=== PATIENT | female | born 1930 | race Caucasian/White ===

== ENCOUNTER 2017-03-30 12:24 | Emergency (ER) | payer MEDICARE, BC ==
[~2017-03-30] VITALS: Ht 160 cm; Wt 68.0 kg
[~2017-03-30 12:24] MED LIST: CELE20TA PO; METO25TA3 PO; PLAV75TA29 PO; PRAV40TA2 PO
[2017-03-30 12:30] VITALS: BP 175/86; PULSE 86; RESP 15; TEMP 98.1; O2SAT 99
--- NOTE | 2017-03-30 12:37 | PD ---
Physical Exam Date Seen by Provider: Mar 30, 2017 Time Seen by Provider: 12:33 Narrative 86-year-old female presents to the emergency department with reports sudden onset of headache left sided pain in the left shoulder, leg, and foot. Patient states it started at 7:00 this morning. Patient states her headache is now a 3 out of 10. She states she took some Aleve which made. Patient denies dizziness or fever. Patient has a history of a stroke one year ago. Patient is ambulatory with a walker. She is alert and oriented. Patient denies numbness. Vital signs are stable. Patient is awaiting mental health placement. Data Data Last Documented VS Vital Signs Date Time Temp Pulse Resp B/P (MAP) Pulse Ox O2 Delivery O2 Flow Rate FiO2 03/30/17 12:30 98.1 86 15 175/86 (115) 99 MDM Medical Record Reviewed: Yes Supervised Visit with JOHNNY: Yes Condition: Stable Pro [place] Mar 30, 2017 12:37
[2017-03-30] MEDS ORDERED: VITA10002 PO (12:54)
[2017-03-30] MEDS ORDERED: TRAZ100T6 PO (12:54)
[2017-03-30] MEDS ORDERED: TRIA1CAP6 PO (12:54)
[2017-03-30] MEDS ORDERED: ALLO100T PO (12:54)
--- NOTE | 2017-03-30 13:59 | PD ---
HPI Chief Complaint: Headache Time Seen by Provider: 13:23 Travel History International Travel<30 days: No Contact w/Intl Traveler<30days: No Traveled to known affect area: No History of Present Illness HPI 86-year-old female presents with headache to the back of her head that she associated with pain to her left shoulder and left hip. She states she took Aleve prior to arrival and now has no pain at all. She states that she has no numbness, weakness, mentation changes or other concurrent complaints at this time. She states no specific modifying factors. Her caregiver states she has history of stroke so she called her primary who said that she should get checked out. Her caregiver also denies her having any numbness, weakness or any other complaints other than pain to her head and pain to her left side of her body. Quality was sharp. Severity is currently resolved. PFSH Past Medical History Hx Anticoagulant Therapy: No Anemia: Yes Arthritis: Yes Anxiety: Yes Depression: Yes ( 2 years ago) Heart Rhythm Problems: No Cancer: No Cardiovascular Problems: Yes High Cholesterol: No Chest Pain: No Congestive Heart Failure: No Cerebrovascular Accident: Yes (right side deficit as well as memory) Endocrine: No GERD: No Gout: Yes Genitourinary: Yes Headaches: Yes Hiatal Hernia: Yes (hernia repair) Hypertension: Yes Immune Disorder: No Kidney Stones: Yes Musculoskeletal: Yes (CHRONIC PAIN) Neurologic: Yes Psychiatric: No Reproductive: No Respiratory: No Migraines: No Pneumonia: Yes Renal Failure: No Seizures: No Ulcer: No Menopausal: Yes : 3 Para: 3 Past Surgical History Abdominal Surgery: Yes (APPENDECTOMY, HERNIA REPAIR) Appendectomy: Yes Cardiac Surgery: No Ear Surgery: No Endocrine Surgery: No Eye Surgery: No Genitourinary Surgery: Yes (LEFT KIDNEY STONE REMOVAL) Gynecologic Surgery: Yes (HYSTERECTOMY) Hysterectomy: Yes Oral Surgery: Yes (DENTAL IMPLANTS) Thoracic Surgery: No Other Surgery: Yes Social History Alcohol Use: No Tobacco Use: No Substance Use: No Allergies-Medications (Allergen,Severity, Reaction): Coded Allergies: ibuprofen (Unverified Adverse Reaction, Intermediate, Diarrhea, 03/30/17) naproxen (Unverified Adverse Reaction, Intermediate, Diarrhea, 03/30/17) "I THINK IT GAVE ME DIARRHEA" Reported Meds & Prescriptions Reported Meds & Active Scripts Active Reported Allopurinol 100 Mg Tab 100 Mg PO DAILY Vitamin B-12 (Cyanocobalamin) 1,000 Mcg Tab 1,000 Mcg PO DAILY Trazodone (Trazodone HCl) 100 Mg Tablet 100 Mg PO HS Dyrenium (Triamterene) 50 Mg Cap 25 Mg PO DAILY Pravastatin 40 Mg Tab 40 Mg PO HS Plavix (Clopidogrel Bisulfate) 75 Mg Tab 75 Mg PO DAILY Celexa (Citalopram Hydrobromide) 20 Mg Tab 20 Mg PO DAILY Review of Systems Except as stated in HPI: all other systems reviewed are Neg Physical Exam Narrative GENERAL: Well-nourished, well-developed patient. Well-appearing SKIN: Warm and dry. HEAD: Normocephalic and atraumatic. EYES: No injection or drainage. ENT: No nasal drainage noted. NECK: Supple, trachea midline. CARDIOVASCULAR: Regular rate and rhythm RESPIRATORY: Breath sounds equal bilaterally. No accessory muscle use. GASTROINTESTINAL: Abdomen soft, non-tender, nondistended. EXTREMITIES: No edema. BACK: Nontender without obvious deformity. NEUROLOGICAL: Awake and alert. Motor and sensory grossly within normal limits. Normal speech. 5 out of 5 in all 4 extremities, no facial droop, no pronator drift Data Data Last Documented VS Vital Signs Date Time Temp Pulse Resp B/P (MAP) Pulse Ox O2 Delivery O2 Flow Rate FiO2 03/30/17 14:34 03/30/17 12:30 98.1 [address] Brain W/O Iv Contrast(Rout) (03/30/17 ) Complete Blood Count With Diff (03/30/17 13:29) Basic Metabolic Panel (Bmp) (03/30/17 13:29) Act Partial Throm Time (Ptt) (03/30/17 13:29) Prothrombin Time / Inr (Pt) (03/30/17 13:29) Iv Access Insert/Monitor (03/30/17 13:29) Sodium Chlorid 0.9% 500 Ml Inj (Ns 500 M (03/30/17 14:45) Labs Laboratory Tests Test 03/30/17 13:35 White Blood Count 8.3 TH/MM3 Red Blood Count 4.98 MIL/MM3 Hemoglobin 14.3 GM/DL Hematocrit 43.1 % Mean Corpuscular Volume 86.7 FL Mean Corpuscular Hemoglobin 28.8 PG Mean Corpuscular Hemoglobin Concent 33.3 % Red Cell Distribution Width 14.1 % Platelet Count 159 TH/MM3 Mean Platelet Volume 9.4 FL Neutrophils (%) (Auto) 61.7 % Lymphocytes (%) (Auto) 26.9 % Monocytes (%) (Auto) 7.2 % Eosinophils (%) (Auto) 3.4 % Basophils (%) (Auto) 0.8 % Neutrophils # (Auto) 5.1 TH/MM3 Lymphocytes # (Auto) 2.2 TH/MM3 Monocytes # (Auto) 0.6 TH/MM3 Eosinophils # (Auto) 0.3 TH/MM3 Basophils # (Auto) 0.1 TH/MM3 CBC Comment DIFF FINAL Differential Comment Prothrombin Time 11.1 SEC Prothromb Time International Ratio 1.0 RATIO Activated Partial Thromboplast Time 27.3 SEC Blood Urea Nitrogen 29 MG/DL Creatinine 1.53 MG/DL Random Glucose 108 MG/DL Calcium Level 9.2 MG/DL Sodium Level 140 MEQ/L Potassium Level 3.7 MEQ/L Chloride Level 106 MEQ/L Carbon Dioxide Level 25.8 MEQ/L Anion Gap 8 MEQ/L Estimat Glomerular Filtration Rate 32 ML/MIN [facility] Medical Decision Making Medical Screen Exam Complete: Yes Emergency Medical Condition: Yes Medical Record Reviewed: Yes (past history confirmed) Differential Diagnosis Tension, migraine, cluster Narrative Course Will check blood work and CT brain given history and if this is normal patient and caregiver agree to outpatient follow-up patient elected to leave [place] while i was with another patient Diagnosis Primary Impression: Cephalalgia Qualified Codes: R51 - Headache Disposition: 07 AGAINST MEDICAL ADVICE Condition: Stable Iliana Yen MD Mar 30, 2017 13:59
[2017-03-30 14:02] LABS: AUTOMATED NEUTROPHIL # 5.1 TH/MM3 (1.8-7.7); BASOPHIL # 0.1 TH/MM3 (0-0.2); BASOPHIL % 0.8 % (0.0-2.0); EOSINOPHIL # 0.3 TH/MM3 (0-0.4); EOSINOPHIL % 3.4 % (0.0-4.0); HEMATOCRIT 43.1 % (35.0-46.0); HEMO FLAGS DIFF FINAL; LYMPH % 26.9 % (9.0-44.0); LYMPHOCYTE # 2.2 TH/MM3 (1.0-4.8); MEAN CELL VOLUME 86.7 FL (80.0-100.0); MEAN CORPUSCULAR HEMOGLOBIN 28.8 PG (27.0-34.0); MEAN CORPUSCULAR HGB CONC 33.3 % (32.0-36.0); MONO % 7.2 % (0.0-8.0); NEUT % 61.7 % (16.0-70.0); PLATELET COUNT 159 TH/MM3 (150-450); RED BLOOD COUNT 4.98 MIL/MM3 (4.00-5.30); RED CELL DISTRIBUTION WIDTH 14.1 % (11.6-17.2); WHITE BLOOD COUNT 8.3 TH/MM3 (4.0-11.0)
[2017-03-30 14:09] LABS: APTT (PATIENT) 27.3 SEC (24.3-30.1); PROTHROMBIN TIME - PATIENT 11.1 SEC (9.8-11.6)
[2017-03-30 14:29] LABS: BICARBONATE 25.8 MEQ/L (21.0-32.0); POTASSIUM 3.7 MEQ/L (3.5-5.1)
[2017-03-30] MEDS ORDERED: SODIUM CHLORID 0.9% 500 ML INJ 500 ML IV ONE (14:45)
== END 2017-03-30 14:41 | disposition left against medical advice (07) ==
LOC: NEPC 12:24
DX: R51 Headache (principal); I10 Essential (primary) hypertension; M10.9 Gout, unspecified; D64.9 Anemia, unspecified; Z86.73 Personal history of transient ischemic attack (TIA), and cerebral infarction without residual deficits; Z79.02 Long term (current) use of antithrombotics/antiplatelets
CPT/HCPCS: 80048; 85025; 85610; 85730; 99283

== ENCOUNTER 2017-03-31 16:50 | Inpatient (IN) | payer MEDICARE, BC ==
[~2017-03-31] VITALS: Ht 160 cm; Wt 68.1 kg
[~2017-03-31 16:50] MED LIST changes: +ALLO100T PO; -METO25TA3 PO; +TRAZ100T6 PO; +TRIA1CAP6 PO; +VITA10002 PO
[2017-03-31 16:53] VITALS: BP 183/100; PULSE 85; RESP 13; TEMP 98.6; O2SAT 96
[2017-03-31] MEDS ORDERED: SODIUM CHLORIDE 0.9% FLUSH 10 ML FLUSH IVF PRN (17:30)
[2017-03-31 17:36] LABS: AUTOMATED NEUTROPHIL # 5.1 TH/MM3 (1.8-7.7); BASOPHIL # 0.1 TH/MM3 (0-0.2); BASOPHIL % 1.4 % (0.0-2.0); EOSINOPHIL # 0.4 TH/MM3 (0-0.4); EOSINOPHIL % 4.5 % (0.0-4.0); HEMATOCRIT 42.1 % (35.0-46.0); HEMO FLAGS DIFF FINAL; LYMPH % 24.1 % (9.0-44.0); MEAN CELL VOLUME 86.7 FL (80.0-100.0); MEAN CORPUSCULAR HEMOGLOBIN 29.3 PG (27.0-34.0); MEAN CORPUSCULAR HGB CONC 33.7 % (32.0-36.0); MONO % 7.6 % (0.0-8.0); NEUT % 62.4 % (16.0-70.0); PLATELET COUNT 158 TH/MM3 (150-450); RED BLOOD COUNT 4.86 MIL/MM3 (4.00-5.30); RED CELL DISTRIBUTION WIDTH 13.9 % (11.6-17.2); WHITE BLOOD COUNT 8.1 TH/MM3 (4.0-11.0)
--- NOTE | 2017-03-31 17:40 | PD ---
HPI Chief Complaint: Dizziness Time Seen by Provider: 17:30 Travel History International Travel<30 days: No Contact w/Intl Traveler<30days: No Traveled to known affect area: No History of Present Illness HPI 86-year-old female patient with previous history of CVA with some remaining right sided deficits, presents to the ER today for dizziness, left sided arm and leg pain, difficulty walking according to her camera storage clerk. Patient was seen yesterday but had refused to get a CAT scan or further studies. She is brought back in because her camera storage clerk has noticed some gaze abnormalities. Modifying Factors: None Associated Signs & Symptoms: Left arm and leg discomfort, dizziness, difficulty walking, and left gaze deficit Risk Factors: Previous stroke PFSH Past Medical History Hx Anticoagulant Therapy: No Anemia: Yes Arthritis: Yes Anxiety: Yes Depression: Yes ( 2 years ago) Heart Rhythm Problems: No Cancer: No Cardiovascular Problems: Yes High Cholesterol: No Chest Pain: No Congestive Heart Failure: No Cerebrovascular Accident: Yes (2016) Endocrine: No GERD: No Gout: Yes Genitourinary: Yes Headaches: Yes Hiatal Hernia: Yes (hernia repair) Hypertension: Yes Immune Disorder: No Kidney Stones: Yes Musculoskeletal: Yes (CHRONIC PAIN) Neurologic: Yes Psychiatric: No Reproductive: No Respiratory: No Migraines: No Pneumonia: Yes Renal Failure: No Seizures: No Ulcer: No Menopausal: Yes : 3 Para: 3 Past Surgical History Abdominal Surgery: Yes (APPENDECTOMY, HERNIA REPAIR) Appendectomy: Yes Cardiac Surgery: No Ear Surgery: No Endocrine Surgery: No Eye Surgery: No Genitourinary Surgery: Yes (LEFT KIDNEY STONE REMOVAL) Gynecologic Surgery: Yes (HYSTERECTOMY) Hysterectomy: Yes Oral Surgery: Yes (DENTAL IMPLANTS) Thoracic Surgery: No Other Surgery: Yes Social History Alcohol Use: No Tobacco Use: No Substance Use: No Allergies-Medications (Allergen,Severity, Reaction): Coded Allergies: No Known Allergies (Unverified , 03/31/17) Reported Meds & Prescriptions Reported Meds & Active Scripts Active Reported Allopurinol 100 Mg Tab 100 Mg PO DAILY Vitamin B-12 (Cyanocobalamin) 1,000 Mcg Tab 1,000 Mcg PO DAILY Trazodone (Trazodone HCl) 100 Mg Tablet 100 Mg PO HS Dyrenium (Triamterene) 50 Mg Cap 25 Mg PO DAILY Pravastatin 40 Mg Tab 40 Mg PO HS Plavix (Clopidogrel Bisulfate) 75 Mg Tab 75 Mg PO DAILY Celexa (Citalopram Hydrobromide) 20 Mg Tab 20 Mg PO DAILY Review of Systems Except as stated in HPI: all other systems reviewed are Neg Physical Exam Narrative GENERAL: [-] Well-developed elderly white female patient currently in mild distress. Awake and oriented 3. SKIN: Focused skin assessment warm/dry. HEAD: Atraumatic. Normocephalic. EYES: Pupils equal and round. No scleral icterus. No injection or drainage. ENT: No nasal bleeding or discharge. Mucous membranes pink and moist. NECK: Trachea midline. No JVD. CARDIOVASCULAR: Regular rate and rhythm. No murmur appreciated. RESPIRATORY: No accessory muscle use. Clear to auscultation. Breath sounds equal bilaterally. GASTROINTESTINAL: Abdomen soft, non-tender, nondistended. Hepatic and splenic margins not palpable. MUSCULOSKELETAL: No obvious deformities. No clubbing. No cyanosis. No edema. NEUROLOGICAL: Awake and alert. Face is symmetrical. I do see a right lateral gaze palsy. No nystagmus. Motor grossly within normal limits. Normal speech. No pronator drift. Patient is unable to do a Romberg secondary to unsteadiness. PSYCHIATRIC: Appropriate mood and affect; insight and judgment normal. Data Data Last Documented VS Vital Signs Date Time Temp Pulse Resp B/P (MAP) Pulse Ox O2 Delivery O2 Flow Rate FiO2 03/31/17 17:41 97 Room Air 03/31/17 16:53 98.6 85 13 Orders Orders Electrocardiogram (03/31/17 17:18) Complete Blood Count With Diff (03/31/17 17:18) Comprehensive Metabolic Panel (03/31/17 17:18) Magnesium (Mg) (03/31/17 17:18) Ckmb (Isoenzyme) Profile (03/31/17 17:18) Troponin I (03/31/17 17:18) Act Partial Throm Time (Ptt) (03/31/17 17:18) Prothrombin Time / Inr (Pt) (03/31/17 17:18) Urinalysis - C+S If Indicated (03/31/17 17:18) Chest, Single Ap (03/31/17 17:18) Ct Brain W/O Iv Contrast(Rout) (03/31/17 17:18) Ecg Monitoring (03/31/17 17:18) Iv Access Insert/Monitor (03/31/17 17:18) Oximetry (03/31/17 17:18) Sodium Chloride 0.9% Flush (Ns Flush) (03/31/17 17:30) CKMB (03/31/17 17:25) CKMB% (03/31/17 17:25) Aspirin (Aspirin) (03/31/17 18:45) Labs Laboratory Tests Test 03/31/17 17:25 White Blood Count 8.1 TH/MM3 Red Blood Count 4.86 MIL/MM3 Hemoglobin 14.2 GM/DL Hematocrit 42.1 % Mean Corpuscular Volume 86.7 FL Mean Corpuscular Hemoglobin 29.3 PG Mean Corpuscular Hemoglobin Concent 33.7 % Red Cell Distribution Width 13.9 % Platelet Count 158 TH/MM3 Mean Platelet Volume 9.3 FL Neutrophils (%) (Auto) 62.4 % Lymphocytes (%) (Auto) 24.1 % Monocytes (%) (Auto) 7.6 % Eosinophils (%) (Auto) 4.5 % Basophils (%) (Auto) 1.4 % Neutrophils # (Auto) 5.1 TH/MM3 Lymphocytes # (Auto) 2.0 TH/MM3 Monocytes # (Auto) 0.6 TH/MM3 Eosinophils # (Auto) 0.4 TH/MM3 Basophils # (Auto) 0.1 TH/MM3 CBC Comment DIFF FINAL Differential Comment Prothrombin Time 11.1 SEC Prothromb Time International Ratio 1.0 RATIO Activated Partial Thromboplast Time 26.0 SEC Blood Urea Nitrogen 29 MG/DL Creatinine 1.63 MG/DL Random Glucose 197 MG/DL Total Protein 7.3 GM/DL Albumin 4.1 GM/DL Calcium Level 9.2 MG/DL Magnesium Level 2.1 MG/DL Alkaline Phosphatase 75 U/L Aspartate Amino Transf (AST/SGOT) 26 U/L Alanine Aminotransferase (ALT/SGPT) 15 U/L Total Bilirubin 0.6 MG/DL Sodium Level 140 MEQ/L Potassium Level 3.9 MEQ/L Chloride Level 105 MEQ/L Carbon Dioxide Level 23.5 MEQ/L Anion Gap 12 MEQ/L Estimat Glomerular Filtration Rate 30 ML/MIN Total Creatine Kinase 152 U/L Creatine Kinase MB 3.2 NG/ML Troponin I LESS THAN 0.02 NG/ML MDM Medical Decision Making Medical Screen Exam Complete: Yes Emergency Medical Condition: Yes Medical Record Reviewed: Yes Interpretation(s) Laboratory Tests Test 03/31/17 17:25 Eosinophils (%) (Auto) 4.5 % (0.0-4.0) Blood Urea Nitrogen 29 MG/DL (7-18) Creatinine 1.63 MG/DL (0.50-1.00) Random Glucose 197 MG/DL (74-106) Estimat Glomerular Filtration Rate 30 ML/MIN (>89) Troponin I LESS THAN 0.02 NG/ML Last [address] 03/31/171717 Signed Impressions: Service Date/Time: Friday, March 31, 2017 17:54 - CONCLUSION: Stable CT brain scan with extensive vascular calcifications and supratentorial stable deep white matter periventricular microvascular ischemic demyelinization. Corky Liu MD Chest X-Ray 03/31/171717 Signed Impressions: Service Date/Time: Friday, March 31, 2017 17:27 - CONCLUSION: 1. Hypoinflation. Possible small left-sided effusion versus pleural parenchymal scarring. 2. No confluent infiltrate. 3. Borderline prominent but well compensated heart. Can Reyes MD Differential Diagnosis Dizziness, unsteadiness, right lateral gaze palsy, left arm and leg pains: CVA versus ICH versus metabolic issues Narrative Course CAT scan did not show any signs of acute intercranial bleed or other obvious acute signs of stroke but patient has signs of microvascular related changes. At this point, aspirin was given in the ER. Lab work was otherwise unremarkable. Patient appears to live alone and has a camera storage clerk that comes in daily. Her daughter is about to calm to visit her for 3 weeks. At this point, I am a bit concerned about the fact that the patient has difficulty walking and camera storage clerk is considered as well, my plan would be to admit her for further evaluation and treatment. Case is discussed with Dr. Cox for admission. Diagnosis Primary Impression: TIA (transient ischemic attack) Admitting Information Admitting Physician Requests: Admit Otto Mariee MD Mar 31, 2017 17:40
[2017-03-31 17:41] VITALS: O2SAT 97
[2017-03-31 17:44] LABS: PROTHROMBIN TIME - PATIENT 11.1 SEC (9.8-11.6)
--- NOTE | 2017-03-31 17:52 | RADRPT ---
EXAM DATE/TIME: 03/31/2017 17:27 [facility] COMPARISON: CHEST SINGLE AP, November 24, 2015, 20:00. INDICATIONS : Short of breath. MEDICAL HISTORY : Stroke. SURGICAL HISTORY : None. ENCOUNTER: Initial ACUITY: 1 day PAIN SCORE: 0/10 LOCATION: Bilateral chest FINDINGS: A single view of the chest demonstrates the lungs to be hypoinflated but clear. There is some bluntin g of the left costophrenic angle which could represent a small effusion or pleural parenchymal scarri ng. Heart size is prominent but well compensated. Osseous structures are intact. CONCLUSION: 1. Hypoinflation. Possible small left-sided effusion versus pleural parenchymal scarring. 2. No confluent infiltrate. 3. Borderline prominent but well compensated heart. Can Reyes MD on March 31, 2017 at 17:49 Board Certified Radiologist. This report was verified electronically.
[2017-03-31 18:04] LABS: ALT (GPT) 15 U/L (10-53)
[2017-03-31 18:07] LABS: ANION GAP 12 MEQ/L (5-15); AST (GOT) 26 U/L (15-37); BICARBONATE 23.5 MEQ/L (21.0-32.0); BLOOD UREA NITROGEN 29 MG/DL (7-18); CHLORIDE 105 MEQ/L (98-107); GLOMERULAR FILTRATION RATE 30 ML/MIN (>89); MAGNESIUM 2.1 MG/DL (1.5-2.5); POTASSIUM 3.9 MEQ/L (3.5-5.1); SODIUM (NA) 140 MEQ/L (136-145)
[2017-03-31 18:10] LABS: ALKALINE PHOSPHATASE 75 U/L (45-117); CREATINE KINASE 152 U/L (26-192); TOTAL BILIRUBIN ADULT 0.6 MG/DL (0.2-1.0)
--- NOTE | 2017-03-31 18:16 | RADRPT ---
EXAM DATE/TIME: 03/31/2017 17:54 [facility] COMPARISON: CT BRAIN W/O CONTRAST, December 01, 2015, 17:32. INDICATIONS : Dizziness with headache today. RADIATION DOSE: 30.49 CTDIvol (mGy) MEDICAL HISTORY : Cardiovascular disease. Hypertension. SURGICAL HISTORY : Hysterectomy. ENCOUNTER: Initial ACUITY: 1 day PAIN SCALE: 1/10 LOCATION: Bilateral cranial TECHNIQUE: Multiple contiguous axial images were obtained of the head. Using automated exposure control and adj ustment of the mA and/or kV according to patient size, radiation dose was kept as low as reasonably a chievable to obtain optimal diagnostic quality images. DICOM format image data is available electro nically for review and comparison. FINDINGS: CEREBRUM: There is stable diffuse atrophy and chronic microvascular ischemic demyelinization.. No evidence of midline shift, mass lesion, hemorrhage or acute infarction. No extra-axial fluid collections are see n. POSTERIOR FOSSA: The cerebellum and brainstem are intact. The 4th ventricle is midline. The cerebellopontine angle i s unremarkable. EXTRACRANIAL: The visualized portion of the orbits is intact. There is some mucosal thickening in the right posteri or sphenoid sinus and a possible 1 cm polyp in one of the posterior left ethmoid air cells. Vascular calcifications internal carotids in the siphon and right vertebral and basilar artery at the foramen. SKULL: The calvaria is intact. No evidence of skull fracture. CONCLUSION: Stable CT brain scan with extensive vascular calcifications and supratentorial stable deep white shiv er periventricular microvascular ischemic demyelinization. Corky Liu MD on March 31, 2017 at 18:11 Board Certified Radiologist. This report was verified electronically.
[2017-03-31 18:23] LABS: CKMB 3.2 NG/ML (0.5-3.6)
[2017-03-31] MEDS ORDERED: ASPIRIN 325 MG TAB PO ONE (18:45)
[2017-03-31] MEDS ORDERED: DEXTROSE 50% IN WATER 50 ML VIAL(D50) IV PUSH PRN (19:15)
[2017-03-31] MEDS ORDERED: ACETAMINOPHEN/HYDROcodone 325 MG/5 MG TAB PO PRN (19:15)
[2017-03-31] MEDS ORDERED: GLUCAGON 1 MG/ML VIAL OTHER PRN (19:15)
[2017-03-31] MEDS ORDERED: MAGNESIUM HYDROXIDE SUSP 30 ML CUP PO PRN (19:15)
[2017-03-31] MEDS ORDERED: LACTULOSE SYRUP 20 GM/30 ML CUP PO PRN (19:15)
[2017-03-31] MEDS ORDERED: SENNOSIDES 8.6 MG TAB PO PRN (19:15)
[2017-03-31] MEDS ORDERED: MORPHINE SULFATE 4 MG/ML INJ IV PUSH PRN (19:15)
[2017-03-31] MEDS ORDERED: SODIUM CHLORIDE 0.9% FLUSH 10 ML FLUSH IV FLUSH PRN (19:15)
[2017-03-31] MEDS ORDERED: ENALAPRILAT 1.25 MG/ML VIAL IV PRN (19:15)
[2017-03-31] MEDS ORDERED: ACETAMINOPHEN 325 MG TAB PO PRN (19:15)
[2017-03-31] MEDS ORDERED: BISACODYL 10 MG SUPP RECTAL PRN (19:15)
[2017-03-31] MEDS ORDERED: SODIUM CHLORIDE 0.9% FLUSH 5 ML FLUSH IV FLUSH PRN (19:15)
[2017-03-31] MEDS ORDERED: ONDANSETRON HCL 4 MG/2 ML VIAL IVP PRN (19:15)
[2017-03-31] MEDS: SODIUM CHLORIDE 0.9% FLUSH 10 ML FLUSH IV FLUSH SCH (20:56)
[2017-03-31] MEDS: SODIUM CHLOR 0.9% 1000 ML INJ 1,000 ML IV SCH (20:56)
[2017-03-31] MEDS ORDERED: SODIUM CHLORIDE 0.9% FLUSH 5 ML FLUSH IV FLUSH SCH (21:00)
[2017-03-31] MEDS: INSULIN ASPART SUPPLEMENTAL SCALE SQ SCH (21:00)
[2017-03-31] MEDS: DOCUSATE SODIUM 50 MG/SENNA 8.6 MG TAB PO SCH (21:00)
--- NOTE | 2017-03-31 21:38 | HHI.HP ---
[facility] Sonya Tabor MD Admission Diagnosis CVA Diagnoses: (1) CVA (cerebral vascular accident) Diagnosis: Principal (2) Gait instability Diagnosis: Principal (3) HTN (hypertension) Diagnosis: Principal (4) Renal insufficiency Diagnosis: Principal Travel History International Travel<30 Days: No Contact w/Intl Traveler <30 Da: No Traveled to Known Affected Are: No History of Present Illness This is an 86-year-old female with a PMH of HTN, Anxiety and h/o CVA w/ Right- Sided Hemiplegia who was brought to the ER secondary to dizziness and left- sided weakness. Per ocean import representative, pt w/ dizziness and difficulty w/ ambulation since yesterday. Seen in ER on 03/30/17 for similar complaints in addition to headache, however refused CT at that time and ultimately LEFT AMA. Now w/ worsening dizziness and gait difficulty. Denies fever, chills, nausea or vomiting. On arrival, BP 175/86, HR 86, O2 sat 99% on RA, Afebrile. CBC unremarkable. Creatinine 1.63, previously 1.53 on 03/30/17. Troponin negative. 1.0. CT Head stable, extensive vascular calcifications and supratentorial stable deep white matter periventricular microvascular ischemic demyelinization. CXR with hypoinflation, possible small left-sided effusion. On exam, pt noted to have right lateral gaze palsy, apparently new finding. Review of Systems Except as stated in HPI: all other systems reviewed are Neg ROS: 14 point review of systems otherwise negative. Past Family Social History Past Medical History PMH: HTN, Anxiety and h/o CVA w/ Right-Sided Hemiplegia Past Surgical History PAST SURGICAL HISTORY: Appendectomy, Hernia Repair, Lithotripsy, Hysterectomy, Dental Implants Allergies: Coded Allergies: No Known Allergies (Unverified , 03/31/17) Family History PAST FAMILY HISTORY: Reviewed. No h/o DM or CAD Social History PAST SOCIAL HISTORY: Negative for alcohol, tobacco or drugs. Physical Exam Vital Signs Vital Signs Date Time Temp Pulse Resp B/P (MAP) Pulse Ox O2 Delivery O2 Flow Rate FiO2 03/31/17 17:41 97 Room Air 03/31/17 16:53 98.6 85 13 183/100 (127) 96 Physical Exam PE: GENERAL: Elderly white female in no acute distress. HEENT: PERRLA, right lateral gaze defect. No scleral icterus or conjunctival pallor. No lid lag or facial droop. CARDIOVASCULAR: Regular rate and rhythm. No obvious murmurs to auscultation. No chest tenderness to palpation. RESPIRATORY: No obvious rhonchi or wheezing. Clear to auscultation. Breath sounds equal bilaterally. GASTROINTESTINAL: Abdomen soft, non-tender, nondistended. BS normal. MUSCULOSKELETAL: Extremities without clubbing, cyanosis, or edema. No obvious deformities. NEUROLOGICAL: Awake, alert. No focal neurologic deficits. Moving both upper and lower extremities spontaneously. Laboratory Laboratory Tests Test 03/31/17 17:25 White Blood Count 8.1 Red Blood Count 4.86 Hemoglobin 14.2 Hematocrit 42.1 Mean Corpuscular Volume 86.7 Mean Corpuscular Hemoglobin 29.3 Mean Corpuscular Hemoglobin Concent 33.7 Red Cell Distribution Width 13.9 Platelet Count 158 Mean Platelet Volume 9.3 Neutrophils (%) (Auto) 62.4 Lymphocytes (%) (Auto) 24.1 Monocytes (%) (Auto) 7.6 Eosinophils (%) (Auto) 4.5 Basophils (%) (Auto) 1.4 Neutrophils # (Auto) 5.1 Lymphocytes # (Auto) 2.0 Monocytes # (Auto) 0.6 Eosinophils # (Auto) 0.4 Basophils # (Auto) 0.1 CBC Comment DIFF FINAL Differential Comment Prothrombin Time 11.1 Prothromb Time International Ratio 1.0 Activated Partial Thromboplast Time 26.0 Blood Urea Nitrogen 29 Creatinine 1.63 Random Glucose 197 Total Protein 7.3 Albumin 4.1 Calcium Level 9.2 Magnesium Level 2.1 Alkaline Phosphatase 75 Aspartate Amino Transf (AST/SGOT) 26 Alanine Aminotransferase (ALT/SGPT) 15 Total Bilirubin 0.6 Sodium Level 140 Potassium Level 3.9 Chloride Level 105 Carbon Dioxide Level 23.5 Anion Gap 12 Estimat Glomerular Filtration Rate 30 Total Creatine Kinase 152 Creatine Kinase MB 3.2 Troponin I LESS THAN 0.02 Result Diagram: 03/31/17 1725 03/31/171724 Caprini VTE Risk Assessment Caprini VTE Risk Assessment: Mod/High Risk (score >= 2) Caprini Risk Assessment Model Point Value = 1 Point Value = 2 Point Value = 3 Point Value = 5 Age 41-60 Minor surgery BMI > 25 kg/m2 Swollen legs Varicose veins or History of unexplained or recurrent spontaneous Oral contraceptives or hormone replacement Sepsis (< 1 month) Serious lung disease, including pneumonia (< 1 month) Abnormal pulmonary function Acute myocardial infarction Congestive heart failure (< 1 month) History of inflammatory bowel disease Medical patient at bed rest Age 61-74 Arthroscopic surgery Major open surgery (> 45 min) Laparoscopic surgery (> 45 min) Malignancy Confined to bed (> 72 hours) Immobilizing plaster cast Central venous access Age >= 75 History of VTE Family history of VTE Factor V Leiden Prothrombin [id number] Lupus anticoagulant Anticardiolipin antibodies Elevated serum homocysteine Heparin-induced thrombocytopenia Other congenital or acquired thrombophilia Stroke (< 1 month) Elective arthroplasty Hip, pelvis, or leg fracture Acute spinal cord injury (< 1 month) Prophylaxis Regimen Total Risk Factor Score Risk Level Prophylaxis Regimen 0-1 Low Early ambulation 2 Moderate Order ONE of the following: *Sequential Compression Device (SCD) *Heparin 5000 units SQ BID 3-4 Higher Order ONE of the following medications: *Heparin 5000 units SQ TID *Enoxaparin/Lovenox 40 mg SQ daily (WT < 150 kg, CrCl > 30 mL/min) *Enoxaparin/Lovenox 30 mg SQ daily (WT < 150 kg, CrCl > 10-29 mL/min) *Enoxaparin/Lovenox 30 mg SQ BID (WT < 150 kg, CrCl > 30 mL/min) AND/OR *Sequential Compression Device (SCD) 5 or more Highest Order ONE of the following medications: *Heparin 5000 units SQ TID (Preferred with Epidurals) *Enoxaparin/Lovenox 40 mg SQ daily (WT < 150 kg, CrCl > 30 mL/min) *Enoxaparin/Lovenox 30 mg SQ daily (WT < 150 kg, CrCl > 10-29 mL/min) *Enoxaparin/Lovenox 30 mg SQ BID (WT < 150 kg, CrCl > 30 mL/min) AND *Sequential Compression Device (SCD) Assessment and Plan Problem List: (1) CVA (cerebral vascular accident) ICD Code: I63.9 - Cerebral infarction, unspecified (2) Gait instability ICD Code: R26.81 - Unsteadiness on feet (3) Renal insufficiency ICD Code: N28.9 - Disorder of kidney and ureter, unspecified (4) HTN (hypertension) ICD Code: I10 - Essential (primary) hypertension Assessment and Plan A/P: 1. CVA: h/o CVA w/ right-sided hemiparesis, now w/ dizziness, right lateral gaze preference and left-sided numbness/tingling. CT Head w/ extensive periventricular white matter disease which is stable, images reviewed by me. Check MRI Brain, Carotid US, resume home Plavix and Statin, start ASA. Hold antihypertensives. Consult Neurology for further recommendations. PT for eval/ tx. 2. Gait Instability: w/ associated dizziness, Meclizine prn, further eval for CVA as above, PT for eval/tx. 3. Renal Insufficiency: Acute on Chronic. Creatinine 1.63, previously 1.53 on 03/30/17. IVF for hydration, repeat labs in am. 4. HTN: BP 160-180's, allow for permissive HTN, hold antihypertensives for BP <220 systolic. Monitor BP 5. DVT Prophylaxis: SCD/Teds. 6. Social work for d/c planning as needed. 7. Case discussed w/ ER physician at length Physician Certification 2 Midnight Certification Type: Admission for Inpatient Services Order for Inpatient Services The services are ordered in accordance with Medicare regulations or non- Medicare payer requirements, as applicable. In the case of services not specified as inpatient-only, they are appropriately provided as inpatient services in accordance with the 2-midnight benchmark. Estimated LOS (days): 2 days is the estimated time the patient will need to remain in the hospital, assuming treatment plan goals are met and no additional complications. Post-Hospital Plan: Not yet determined Irena Cox MD Mar 31, 2017 21:38
[2017-03-31] MEDS ORDERED: MECLIZINE HCL 25 MG TAB PO PRN (21:45)
[2017-03-31 21:48] VITALS: BP 178/89; PULSE 78; RESP 15; O2SAT 96
[2017-03-31] MEDS: traZODone HCL 100 MG TAB PO SCH (21:55)
[2017-03-31] MEDS: PRAVASTATIN SOD 40 MG TAB PO SCH (21:55)
[2017-03-31 22:10] LABS: BLOOD, URINE NEG (NEG); COMMENT (UR) CULT NOT INDICATED; CULTURE IF INDICATED CULT NOT INDICATED; GLUCOSE,URINE NEG (NEG); KETONE, URINE NEG (NEG); NITRITE,URINE NEG (NEG); PH, URINE 5.5 (5.0-8.5); SQUAMOUS EPITHELIAL CELL URINE 1 /hpf (0-5); URINE COLOR YELLOW (YELLW/STRAW)
[2017-03-31 22:57] VITALS: BP 171/75; PULSE 63; RESP 18; TEMP 97.5; O2SAT 97
--- NOTE | 2017-03-31 23:25 | RADRPT ---
EXAM DATE/TIME: 03/31/2017 22:11 [facility] COMPARISON: MRA CAROTIDS W CONTRAST, November 26, 2015, 15:09. US CAROTID ARTERIES, November 25, 2015, 10:34. INDICATIONS : Cerebrovascular accident. MEDICAL HISTORY : Hypertension. Renal calculi. Cerebrovascular accident. Headaches. Hyperlipidemia. Pneumonia. Pregna ncy. Chronic kidney disease. Diabetes. Arthritis. Gout. Depression Anxiety. Anemia. Blood transfusion . SURGICAL HISTORY : Hysterectomy. Appendectomy. Hiatal hernia repair. Left kidney stone removal. Partial left knee repl acement. ENCOUNTER: Subsequent ACUITY: 1 day PAIN SCORE: 0/10 LOCATION: Bilateral neck PEAK SYSTOLIC VELOCITIES (cm/sec): ICA/CCA RATIO: Right: 1.0 Left: 0.7 ICA: Right: 45 Left: 35 CCA: Right: 44 Left: 48 ECA: Right: 47 Left: 71 VERTEBRAL: Right: 27 antegrade Left: 23 antegrade Elevated flow velocities and ICA/CCA ratios have been found to correlate with increased degrees of vessel stenosis, calculated as percentage of diameter relative to a normal segment of distal ICA/CCA FINDINGS: RIGHT CAROTID: No significant stenosis is visualized. The waveforms are within normal limits. The common carotid a rtery is tortuous. LEFT CAROTID: No significant stenosis is visualized. The waveforms are within normal limits. The common carotid i s tortuous. VERTEBRAL ARTERIES: Antegrade flow is seen in both vertebral arteries. There are negative velocity components in systole and diastole and left vertebral artery suggesting high resistive profile, unchanged from prior in 16. CONCLUSION: 1. Normal hemodynamic profile both carotids. 2. Antegrade flow in both vertebral arteries with high resistive spectral profile left vertebral. Pr ior carotid MRA had demonstrated a right dominant vertebral system. Benito Diaz MD on March 31, 2017 at 23:13 Board Certified Radiologist. This report was verified electronically.
[2017-03-31 23:59] VITALS: PULSE 62
[2017-04-01] VITALS (8 sets, daily range): BP systolic 150–177; BP diastolic 76–92; PULSE 55–70; RESP 16–20; TEMP 97.4–98.2; O2SAT 92–98
[2017-04-01] MEDS: INSULIN ASPART SUPPLEMENTAL SCALE SQ SCH ×4 (08:00→21:34)
--- NOTE | 2017-04-01 08:16 | RADRPT ---
EXAM DATE/TIME: 04/01/2017 07:52 [facility] COMPARISON: CT BRAIN W/O CONTRAST, March 31, 2017, 17:54. MRI BRAIN W/O CONTRAST, December 01, 2015, 22:30. INDICATIONS : Eyes going crossed. MEDICAL HISTORY : Cerebrovascular disease. Hypertension. SURGICAL HISTORY : Hysterectomy. Total knee replacement, left. Inguinal hernia repair. ENCOUNTER: Initial ACUITY: 2 day PAIN SCORE: 0/10 LOCATION: cranial TECHNIQUE: Multiplanar, multisequence MRI of the brain was performed without contrast. FINDINGS: CEREBRUM: There is [id number] generalized cerebral atrophy. Ventricles are normal in size given the deg ree of atrophy present. There are innumerable punctate foci of susceptibility artifact within the cer ebrum and brainstem, likely increased from the prior study. No midline shift, mass lesion, hemorrhage or acute infarction. No extraaxial fluid collections are seen. The pituitary gland and suprasellar cistern are normal in configuration. WHITE MATTER: There is severe periventricular and subcortical white matter signal change bilaterally. POSTERIOR FOSSA: The cerebellum and brainstem demonstrate no acute abnormality. The 4th ventricle is midline. The cer ebellopontine angle is unremarkable. The cerebellar tonsils are normal in position. DIFFUSION IMAGING: No focal areas of restricted diffusion are seen. No evidence of acute infarction. EXTRACRANIAL: The visualized portions of the orbits and paranasal sinuses are unremarkable. CONCLUSION: 1. No acute intracranial abnormality is identified. There no findings to indicate recent ischemia. 2. Chronic changes include severe generalized atrophy and periventricular white matter change charact eristic of chronic microvascular ischemia. 3. Innumerable punctate areas of susceptibility artifact in the cerebrum and brainstem suggest hemosi sukhdeep deposition. This can be seen with amyloid angiopathy. Glynn Cline MD on April 01, 2017 at 8:11 Board Certified Radiologist. This report was verified electronically.
[2017-04-01] MEDS: SODIUM CHLORIDE 0.9% FLUSH 10 ML FLUSH IV FLUSH SCH ×2 (09:00→21:00)
[2017-04-01] MEDS: CLOPIDOGREL 75 MG TAB PO SCH (09:01)
[2017-04-01] MEDS: ASPIRIN 325 MG TAB PO SCH (09:01)
[2017-04-01] MEDS: DOCUSATE SODIUM 50 MG/SENNA 8.6 MG TAB PO SCH ×2 (09:01→21:18)
[2017-04-01] MEDS: CITALOPRAM HYDROBROMIDE 20 MG TAB PO SCH (09:01)
[2017-04-01] MEDS: SODIUM CHLOR 0.9% 1000 ML INJ 1,000 ML IV SCH ×2 (09:02→23:48)
[2017-04-01 12:38] LABS: AUTOMATED NEUTROPHIL # 4.7 TH/MM3 (1.8-7.7); BASOPHIL # 0.1 TH/MM3 (0-0.2); BASOPHIL % 1.1 % (0.0-2.0); EOSINOPHIL # 0.2 TH/MM3 (0-0.4); EOSINOPHIL % 3.3 % (0.0-4.0); HEMATOCRIT 40.9 % (35.0-46.0); HEMO FLAGS DIFF FINAL; LYMPH % 23.8 % (9.0-44.0); LYMPHOCYTE # 1.7 TH/MM3 (1.0-4.8); MEAN CELL VOLUME 86.8 FL (80.0-100.0); MEAN CORPUSCULAR HEMOGLOBIN 29.4 PG (27.0-34.0); MEAN CORPUSCULAR HGB CONC 33.9 % (32.0-36.0); MONO % 6.9 % (0.0-8.0); NEUT % 64.9 % (16.0-70.0); PLATELET COUNT 142 TH/MM3 (150-450); RED BLOOD COUNT 4.72 MIL/MM3 (4.00-5.30); RED CELL DISTRIBUTION WIDTH 13.9 % (11.6-17.2); WHITE BLOOD COUNT 7.3 TH/MM3 (4.0-11.0)
[2017-04-01 12:50] LABS: ANION GAP 6 MEQ/L (5-15); AST (GOT) 14 U/L (15-37); BICARBONATE 26.8 MEQ/L (21.0-32.0); BLOOD UREA NITROGEN 20 MG/DL (7-18); CHLORIDE 107 MEQ/L (98-107); GLOMERULAR FILTRATION RATE 39 ML/MIN (>89); POTASSIUM 3.7 MEQ/L (3.5-5.1); SODIUM (NA) 140 MEQ/L (136-145)
[2017-04-01 12:51] LABS: ALT (GPT) 14 U/L (10-53)
[2017-04-01 12:55] LABS: ALKALINE PHOSPHATASE 68 U/L (45-117); HDL CHOLESTEROL 54.4 MG/DL (40.0-60.0); LDL CHOLESTEROL 56 MG/DL (0-99); TOTAL BILIRUBIN ADULT 0.6 MG/DL (0.2-1.0)
--- NOTE | 2017-04-01 13:09 | MB ---
cc: VICK CHRISTIANSON M.D. DATE OF CONSULTATION: 04/01/17 HISTORY OF PRESENT ILLNESS She is an 86-year-old woman seen in neurological consultation. She was brought to the hospital with a history of some left-sided weakness and dizziness. She is now denying any residual symptoms. She feels she is ready to go home. In the past year, she had a stroke causing right-sided weakness but recovered fairly well. She lives at home with a real estate office supervisor and her children live nearby and assist her. She developed some weakness on her left side. She also tells me about headaches and left shoulder discomfort. She had been taking Plavix since she had the stroke a year or so ago. The patient reportedly had more difficulty with walking according to the chart. MEDICATIONS AT HOME 1. Trazodone. 2. Triamterene. 3. Pravastatin. 4. Plavix. 5. Celexa. 6. Allopurinol. SOCIAL HISTORY No smoking. No alcohol. NEUROLOGIC EXAMINATION Neurologic exam shows an alert pleasant woman who is in good spirits. She is well oriented and appears to be mentally appropriate for her age. She has some right eye lateral gaze impairment that is moderately severe, and according to the patient this is new but she denies any double vision or blurriness whatsoever. Her gaze was otherwise adequate. She was able to count fingers in all madrigal with right and left eye. There is minimal facial asymmetry of probable no significance. She raised the arms and [id number] testing was normal. The phthalic acid purifier is reasonably strong bilaterally. She resists well with the lower extremities on the bedside exam. Reflexes were trace responses throughout and plantar response flexor. ANCILLARY DATA The MRI brain is showing chronic change, no recent or acute process, punctate areas of susceptibility artifact diffusely suggesting hemosiderin deposition that is often seen with amyloid angiopathy. Carotid ultrasound showed normal findings. CBC normal. Chemistry with BUN 29, creatinine 1.63 and glucose 197, otherwise normal. ASSESSMENT Presumed TIA causing left-sided weakness. There is a history of microvascular disease, prior stroke causing right-sided deficits. She has been on Plavix and aspirin was added. I would keep the Plavix and aspirin for a period of 4-6 weeks only, and considering the possible hemosiderin deposits noted in the brain MRI suggesting amyloid angiopathy, I would not use two antiplatelet agents for long-term in this patient. I think she probably could be discharged within the next 24 hours. The lipid profile has been ordered and pending. She has been on a statin at home and this is continued here. Thank you for asking us to assist in her care. MD BOB Goncalves/BJF /11:16 AM /12:42 PM
--- NOTE | 2017-04-01 14:15 | HHI.PR ---
Subjective Remarks This is an 86-year-old female with a PMH of HTN, Anxiety and h/o CVA w/ Right- Sided Hemiplegia who was brought to the ER secondary to dizziness and left- sided weakness. Per lab clerk, pt w/ dizziness and difficulty w/ ambulation since yesterday. Seen in ER on 03/30/17 for similar complaints in addition to headache, however refused CT at that time and ultimately LEFT AMA. Now w/ worsening dizziness and gait difficulty. Denies fever, chills, nausea or vomiting. On arrival, BP 175/86, HR 86, O2 sat 99% on RA, Afebrile. CBC unremarkable. Creatinine 1.63, previously 1.53 on 03/30/17. Troponin negative. 1.0. CT Head stable, extensive vascular calcifications and supratentorial stable deep white matter periventricular microvascular ischemic demyelinization. CXR with hypoinflation, possible small left-sided effusion. On exam, pt noted to have right lateral gaze palsy, apparently new finding. 04-01 SEEN BY NEUROLOGY AM LABS ECHO, CAROTIDS IF STABLE DC TO HOME TOMORROW DID WELL WITH PT Objective Vitals Vital Signs Date Time Temp Pulse Resp B/P (MAP) Pulse Ox O2 Delivery O2 Flow Rate FiO2 04/01/17 12:00 98.0 66 16 152/80 (104) 95 04/01/17 10:09 55 04/01/17 09:17 92 21 04/01/17 08:00 97.4 63 16 150/81 (104) 95 04/01/17 04:00 98.2 62 20 155/76 (102) 96 03/31/17 23:59 62 03/31/17 22:57 97.5 63 18 171/75 (107) 97 03/31/17 22:22 03/31/17 21:48 78 15 178/89 (118) 96 Room Air 03/31/17 17:41 97 Room Air 03/31/17 16:53 98.6 85 13 183/100 (127) 96 I/O 03/31/17 03/31/17 03/31/17 04/01/17 04/01/17 04/01/17 07:00 15:00 23:00 07:00 15:00 23:00 Intake Total 805 ml Output Total 200 ml Balance 605 ml Intake Oral 120 ml IV Total 685 ml Output Urine Total 200 ml # Bowel Movements 0 Result Diagram: 04/01/17 1153 04/01/17 1153 Other Results Laboratory Tests Test 03/31/17 17:25 03/31/17 21:30 04/01/17 11:53 White Blood Count 8.1 TH/MM3 7.3 TH/MM3 Red Blood Count 4.86 MIL/MM3 4.72 MIL/MM3 Hemoglobin 14.2 GM/DL 13.9 GM/DL Hematocrit 42.1 % 40.9 % Mean Corpuscular Volume 86.7 FL 86.8 FL Mean Corpuscular Hemoglobin 29.3 PG 29.4 PG Mean Corpuscular Hemoglobin Concent 33.7 % 33.9 % Red Cell Distribution Width 13.9 % 13.9 % Platelet Count 158 TH/MM3 142 TH/MM3 Mean Platelet Volume 9.3 FL 9.2 FL Neutrophils (%) (Auto) 62.4 % 64.9 % Lymphocytes (%) (Auto) 24.1 % 23.8 % Monocytes (%) (Auto) 7.6 % 6.9 % Eosinophils (%) (Auto) 4.5 % 3.3 % Basophils (%) (Auto) 1.4 % 1.1 % Neutrophils # (Auto) 5.1 TH/MM3 4.7 TH/MM3 Lymphocytes # (Auto) 2.0 TH/MM3 1.7 TH/MM3 Monocytes # (Auto) 0.6 TH/MM3 0.5 TH/MM3 Eosinophils # (Auto) 0.4 TH/MM3 0.2 TH/MM3 Basophils # (Auto) 0.1 TH/MM3 0.1 TH/MM3 CBC Comment DIFF FINAL DIFF FINAL Differential Comment Prothrombin Time 11.1 SEC Prothromb Time International Ratio 1.0 RATIO Activated Partial Thromboplast Time 26.0 SEC Blood Urea Nitrogen 29 MG/DL 20 MG/DL Creatinine 1.63 MG/DL 1.30 MG/DL Random Glucose 197 MG/DL 133 MG/DL Total Protein 7.3 GM/DL 6.9 GM/DL Albumin 4.1 GM/DL 3.6 GM/DL Calcium Level 9.2 MG/DL 8.7 MG/DL Magnesium Level 2.1 MG/DL Alkaline Phosphatase 75 U/L 68 U/L Aspartate Amino Transf (AST/SGOT) 26 U/L 14 U/L Alanine Aminotransferase (ALT/SGPT) 15 U/L 14 U/L Total Bilirubin 0.6 MG/DL 0.6 MG/DL Sodium Level 140 MEQ/L 140 MEQ/L Potassium Level 3.9 MEQ/L 3.7 MEQ/L Chloride Level 105 MEQ/L 107 MEQ/L Carbon Dioxide Level 23.5 MEQ/L 26.8 MEQ/L Anion Gap 12 MEQ/L 6 MEQ/L Estimat Glomerular Filtration Rate 30 ML/MIN 39 ML/MIN Total Creatine Kinase 152 U/L Creatine Kinase MB 3.2 NG/ML Troponin I LESS THAN 0.02 NG/ML Urine Color YELLOW Urine Turbidity CLEAR Urine pH 5.5 Urine Specific [place] 1.020 Urine Protein NEG mg/dL Urine Glucose (UA) NEG mg/dL Urine Ketones NEG mg/dL Urine Occult Blood NEG Urine Nitrite NEG Urine Bilirubin NEG Urine Urobilinogen LESS THAN 2.0 MG/DL Urine Leukocyte Esterase SMALL Urine WBC 2 /hpf Urine Squamous Epithelial Cells 1 /hpf Microscopic Urinalysis Comment CULT NOT INDICATED Triglycerides Level 105 MG/DL Cholesterol Level 131 MG/DL LDL Cholesterol 56 MG/DL HDL Cholesterol 54.4 MG/DL Cholesterol/HDL Ratio 2.40 RATIO Imaging Last Impressions Brain MRI 04/01/17 0000 Signed Impressions: Service Date/Time: Saturday, April 01, 2017 07:52 - CONCLUSION: 1. No acute intracranial abnormality is identified. There no findings to indicate recent ischemia. 2. Chronic changes include severe generalized atrophy and periventricular white matter change characteristic of chronic microvascular ischemia. 3. Innumerable punctate areas of susceptibility artifact in the cerebrum and brainstem suggest hemosiderin deposition. This can be seen with amyloid angiopathy. Glynn Cline MD Head CT [id number] Signed Impressions: Service Date/Time: Friday, March 31, 2017 17:54 - CONCLUSION: Stable CT brain scan with extensive vascular calcifications and supratentorial stable deep white matter periventricular microvascular ischemic demyelinization. Corky Liu MD Chest X-Ray [id number] Signed Impressions: Service Date/Time: Friday, March 31, 2017 17:27 - CONCLUSION: 1. Hypoinflation. Possible small left-sided effusion versus pleural parenchymal scarring. 2. No confluent infiltrate. 3. Borderline prominent but well compensated heart. Can Reyes MD Carotid Artery Ultrasound 03/31/17 0000 Signed Impressions: Service Date/Time: Friday, March 31, 2017 22:11 - CONCLUSION: 1. Normal hemodynamic profile both carotids. 2. Antegrade flow in both vertebral arteries with high resistive spectral profile left vertebral. Prior carotid MRA had demonstrated a right dominant vertebral system. Benito Diaz MD Objective Remarks GENERAL: AWAKE ALERT AND ORIENTED x 3 SKIN: Warm and dry. HEAD: Atraumatic. Normocephalic. EYES: Pupils equal and round. No scleral icterus. No injection or drainage. RIGHT LATERAL GAZE DEFECT ENT: No nasal bleeding or discharge. Mucous membranes pink and moist. TONGUE MIDLINE NECK: Trachea midline. No JVD. CARDIOVASCULAR: Regular rate and rhythm. S1, S2 NO S3 OR S4 RESPIRATORY: No accessory muscle use. Clear to auscultation. Breath sounds equal bilaterally. GASTROINTESTINAL: Abdomen soft, non-tender, nondistended. Hepatic and splenic margins not palpable. MUSCULOSKELETAL: Extremities without clubbing, cyanosis, or edema. No obvious deformities. NEUROLOGICAL: Awake and alert. No obvious cranial nerve deficits. Motor grossly within normal limits. Five out of 5 muscle strength in the arms and legs. Normal speech. PSYCHIATRIC: Appropriate mood and affect; insight and judgment normal. Medications and IVs Current Medications Sodium Chloride (NS Flush) 2 ml UNSCH PRN IVF FLUSH AFTER USING IV ACCESS; Start 03/31/17 at 17:30; Stop 03/31/17 at 19:26; Status DC Aspirin (Aspirin) 325 mg ONCE ONCE PO Last administered on 03/31/17 18:54; Start 03/31/17 at 18:45; Stop 03/31/17 at 18:46; Status DC IV Flush (NS Flush) 2 ml BID IV FLUSH ; Start 03/31/17 at 21:00; Status UNV IV Flush (NS Flush) 2 ml UNSCH PRN IV FLUSH FLUSH AFTER USING IV ACCESS; Start 03/31/17 at 19:15; Status UNV Sodium Chloride 1,000 ml @ 70 mls/hr [id number] IV Last administered on 20:56; Start 03/31/17 at 19:12 Enalaprilat (Vasotec Inj) 1.25 mg Q4H PRN IV For SBP > 220 or DBP > 120; Start 03/31/17 at 19:15 Aspirin (Aspirin) 325 mg DAILY PO Last administered on 04/01/17 09:01; Start 04/01/17 at 09:00 Insulin Aspart (NovoLOG SUPPLEMENTAL SCALE) 1 ACHS SQ ; Start 03/31/17 at 21:00 Dextrose (D50w (Vial) Inj) 50 ml UNSCH PRN IV PUSH HYPOGLYCEMIA-SEE COMMENTS; Start 03/31/17 at 19:15 Glucagon (Glucagon Inj) 1 mg UNSCH PRN OTHER HYPOGLYCEMIA-SEE COMMENTS; Start 03/31/17 at 19:15 Sodium Chloride (NS Flush) 2 ml UNSCH PRN IV FLUSH FLUSH AFTER USING IV ACCESS ; Start 03/31/17 at 19:15 Sodium Chloride (NS Flush) 2 ml BID IV FLUSH Last administered on 03/31/17 20: 56; Start 03/31/17 at 21:00 Ondansetron HCl (Zofran Inj) 4 mg Q6H PRN IVP NAUSEA OR VOMITING; Start at 19:15 Acetaminophen (Tylenol) 650 mg Q6H PRN PO FEVER/PAIN SCALE 1 TO 2; Start at 19:15 Acetaminophen/ Hydrocodone Bitart ([place] 5-325 Mg) 1 tab Q4H PRN PO PAIN SCALE 3 TO 5; Start 03/31/17 at 19:15 Morphine Sulfate (Morphine Inj) 2 mg Q3H PRN IV PUSH Pain 6-10; Start 03/31/17 at 19:15 Senna/Docusate Sodium (Allie-Colace) 1 tab BID PO Last administered on 09:01; Start 03/31/17 at 21:00 Magnesium Hydroxide (Milk Of Magnesia Liq) 30 ml Q12H PRN PO MILD - MODERATE CONSTIPATION; Start 03/31/17 at 19:15 Sennosides (Senokot) 17.2 mg Q12H PRN PO MODERATE - SEVERE CONSTIPATION; Start 03/31/17 at 19:15 Bisacodyl (Dulcolax Supp) 10 mg DAILY PRN RECTAL SEVERE CONSITIPATION; Start at 19:15 Lactulose (Lactulose Liq) 30 ml DAILY PRN PO SEVERE CONSITIPATION; Start at 19:15 Citalopram Hydrobromide (CeleXA) 20 mg DAILY PO Last administered on 04/01/17 09:01; Start 04/01/17 at 09:00 Clopidogrel Bisulfate (Plavix) 75 mg DAILY PO Last administered on 04/01/17 09 :01; Start 04/01/17 at 09:00 Pravastatin Sodium (Pravachol) 40 mg HS PO Last administered on 03/31/17 21:55 ; Start 03/31/17 at 21:00 Trazodone HCl (Desyrel) 100 mg HS PO Last administered on 03/31/17 21:55; Start 03/31/17 at 21:00 Meclizine HCl (Antivert) 25 mg Q8H PRN PO DIZZINESS; Start 03/31/17 at 21:45 Allopurinol (Zyloprim) 100 mg DAILY PO ; Start 04/02/17 at 09:00 Cyanocobalamin (Vitamin B12) 1,000 mcg DAILY PO ; Start 04/02/17 at 09:00 Non-Formulary Medication 25 mg DAILY PO ; Start 04/02/17 at 09:00; Status UNV Patient Own Medication PT OWN MED: TRIAMTER... DAILY PO ; Start 04/02/17 at 09: 00; Status Future Hold A/P Problem List: (1) CVA (cerebral vascular accident) ICD Code: I63.9 - Cerebral infarction, unspecified (2) Gait instability ICD Code: R26.81 - Unsteadiness on feet (3) Renal insufficiency ICD Code: N28.9 - Disorder of kidney and ureter, unspecified (4) HTN (hypertension) ICD Code: I10 - Essential (primary) hypertension Assessment and Plan 1. CVA: h/o CVA w/ right-sided hemiparesis, now w/ dizziness, right lateral gaze preference and left-sided numbness/tingling. CT Head w/ extensive periventricular white matter disease which is stable, images reviewed by me. Check MRI Brain, Carotid US, resume home Plavix and Statin, start ASA. Hold antihypertensives. Consult Neurology for further recommendations. PT for eval/ tx. 2. Gait Instability: w/ associated dizziness, Meclizine prn, further eval for CVA as above, PT for eval/tx. 3. Renal Insufficiency: Acute on Chronic. Creatinine 1.63, previously 1.53 on 03/30/17. IVF for hydration, repeat labs in am. 4. HTN: BP 160-180's, allow for permissive HTN, hold antihypertensives for BP <220 systolic. Monitor BP 5. DVT Prophylaxis: SCD/Teds. 6. Social work for d/c planning as needed. VI PT AND PATIENT AND FAMILY AND RN NEUROLOGY NOTE REVIEWED HOPEFULLY HOME IN AM Arden Winter DO Apr 01, 2017 14:15
--- NOTE | 2017-04-01 17:10 | EKG ---
Date Performed: 03/31/2017 Time Performed: 17:49:20 PTAGE: 86 years EKG: Sinus rhythm LOW QRS VOLTAGE IN PRECORDIAL LEADS NONSPECIFIC T-WAVE ABNORMALITY BORDERLINE ECG PREVIOUS TRACING : 12/01/2015 @ 16.55 Compared to prior tracing no significant change DOCTOR: Ryan Alonzo Interpretating Date/Time 04/03/2017 07:42:14
[2017-04-01] MEDS: traZODone HCL 100 MG TAB PO SCH (21:18)
[2017-04-01] MEDS: PRAVASTATIN SOD 40 MG TAB PO SCH (21:18)
[2017-04-02] VITALS: BP 162/93; PULSE 68; RESP 20; TEMP 98; O2SAT 96
[2017-04-02 04:00] VITALS: BP 137/83; PULSE 68; RESP 20; TEMP 97.8; O2SAT 96
[2017-04-02] MEDS: INSULIN ASPART SUPPLEMENTAL SCALE SQ SCH ×2 (07:59→11:49)
[2017-04-02 08:00] VITALS: BP 166/80; PULSE 67; RESP 20; TEMP 98.2; O2SAT 97
[2017-04-02] MEDS: SODIUM CHLORIDE 0.9% FLUSH 10 ML FLUSH IV FLUSH SCH (08:22)
[2017-04-02] MEDS: DOCUSATE SODIUM 50 MG/SENNA 8.6 MG TAB PO SCH (08:22)
[2017-04-02] MEDS: CITALOPRAM HYDROBROMIDE 20 MG TAB PO SCH (08:22)
[2017-04-02] MEDS: CLOPIDOGREL 75 MG TAB PO SCH (08:22)
[2017-04-02] MEDS: ASPIRIN 325 MG TAB PO SCH (08:23)
[2017-04-02] MEDS ORDERED: NON-FORMULARY DRUG (Triamterene (Dyrenium) 25 MG) PO SCH (09:00)
[2017-04-02] MEDS ORDERED: TRIAMTERENE 25 MG PO SCH (09:00)
[2017-04-02] MEDS ORDERED: CYANOCOBALAMIN 1,000 MCG TAB PO SCH (09:00)
[2017-04-02] MEDS ORDERED: ALLOPURINOL 100 MG TAB PO SCH (09:00)
[2017-04-02 09:15] VITALS: O2SAT 94
[2017-04-02] MEDS ORDERED: TRIAMTERENE/HCTZ 37.5 MG/25 MG CAP PO SCH (10:45)
[2017-04-02 11:23] LABS: HEMOGLOBIN A1a 1.2 %; HEMOGLOBIN A1b 1.1 %; HEMOGLOBIN LA1C 2.2 %
[2017-04-02] MEDS: SODIUM CHLOR 0.9% 1000 ML INJ 1,000 ML IV SCH (11:49)
[2017-04-02 12:00] VITALS: BP 147/79; PULSE 64; RESP 18; TEMP 98.3; O2SAT 94
--- NOTE | 2017-04-02 12:24 | HHI.PR ---
Subjective Remarks This is an 86-year-old female with a PMH of HTN, Anxiety and h/o CVA w/ Right- Sided Hemiplegia who was brought to the ER secondary to dizziness and left- sided weakness. Per manager assisted living, pt w/ dizziness and difficulty w/ ambulation since yesterday. Seen in ER on 03/30/17 for similar complaints in addition to headache, however refused CT at that time and ultimately LEFT AMA. Now w/ worsening dizziness and gait difficulty. Denies fever, chills, nausea or vomiting. On arrival, BP 175/86, HR 86, O2 sat 99% on RA, Afebrile. CBC unremarkable. Creatinine 1.63, previously 1.53 on 03/30/17. Troponin negative. 1.0. CT Head stable, extensive vascular calcifications and supratentorial stable deep white matter periventricular microvascular ischemic demyelinization. CXR with hypoinflation, possible small left-sided effusion. On exam, pt noted to have right lateral gaze palsy, apparently new finding. 04-01 SEEN BY NEUROLOGY AM LABS ECHO, CAROTIDS IF STABLE DC TO HOME TOMORROW DID WELL WITH PT 04-02 DOING WELL DC TO HOME TODAY DID WELL WITH PT NO NEED FOR HHC Objective Vitals Vital Signs Date Time Temp Pulse Resp B/P (MAP) Pulse Ox O2 Delivery O2 Flow Rate FiO2 04/02/17 09:15 94 21 04/02/17 08:00 98.2 67 20 166/80 (108) 97 04/02/17 04:00 97.8 68 20 137/83 (101) 96 04/02/17 00:00 98.0 68 20 162/93 (116) 96 04/01/17 21:00 66 04/01/17 20:00 98.0 64 20 175/84 (114) 98 04/01/17 16:00 97.7 70 16 177/92 (120) 95 I/O 04/01/17 04/01/17 04/01/17 04/02/17 04/02/17 04/02/17 07:00 15:00 23:00 07:00 15:00 23:00 Intake Total 805 ml 960 ml Output Total 200 ml Balance 605 ml 960 ml Intake Oral 120 ml 960 ml IV Total 685 ml Output Urine Total 200 ml # Voids 5 2 2 # Bowel Movements 0 Result Diagram: 04/01/17 1153 04/01/17 1153 Other Results Laboratory Tests Test 03/31/17 17:25 03/31/17 21:30 04/01/17 11:53 White Blood Count 8.1 TH/MM3 7.3 TH/MM3 Red Blood Count 4.86 MIL/MM3 4.72 MIL/MM3 Hemoglobin 14.2 GM/DL 13.9 GM/DL Hematocrit 42.1 % 40.9 % Mean Corpuscular Volume 86.7 FL 86.8 FL Mean Corpuscular Hemoglobin 29.3 PG 29.4 PG Mean Corpuscular Hemoglobin Concent 33.7 % 33.9 % Red Cell Distribution Width 13.9 % 13.9 % Platelet Count 158 TH/MM3 142 TH/MM3 Mean Platelet Volume 9.3 FL 9.2 FL Neutrophils (%) (Auto) 62.4 % 64.9 % Lymphocytes (%) (Auto) 24.1 % 23.8 % Monocytes (%) (Auto) 7.6 % 6.9 % Eosinophils (%) (Auto) 4.5 % 3.3 % Basophils (%) (Auto) 1.4 % 1.1 % Neutrophils # (Auto) 5.1 TH/MM3 4.7 TH/MM3 Lymphocytes # (Auto) 2.0 TH/MM3 1.7 TH/MM3 Monocytes # (Auto) 0.6 TH/MM3 0.5 TH/MM3 Eosinophils # (Auto) 0.4 TH/MM3 0.2 TH/MM3 Basophils # (Auto) 0.1 TH/MM3 0.1 TH/MM3 CBC Comment DIFF FINAL DIFF FINAL Differential Comment Prothrombin Time 11.1 SEC Prothromb Time International Ratio 1.0 RATIO Activated Partial Thromboplast Time 26.0 SEC Blood Urea Nitrogen 29 MG/DL 20 MG/DL Creatinine 1.63 MG/DL 1.30 MG/DL Random Glucose 197 MG/DL 133 MG/DL Total Protein 7.3 GM/DL 6.9 GM/DL Albumin 4.1 GM/DL 3.6 GM/DL Calcium Level 9.2 MG/DL 8.7 MG/DL Magnesium Level 2.1 MG/DL Alkaline Phosphatase 75 U/L 68 U/L Aspartate Amino Transf (AST/SGOT) 26 U/L 14 U/L Alanine Aminotransferase (ALT/SGPT) 15 U/L 14 U/L Total Bilirubin 0.6 MG/DL 0.6 MG/DL Sodium Level 140 MEQ/L 140 MEQ/L Potassium Level 3.9 MEQ/L 3.7 MEQ/L Chloride Level 105 MEQ/L 107 MEQ/L Carbon Dioxide Level 23.5 MEQ/L 26.8 MEQ/L Anion Gap 12 MEQ/L 6 MEQ/L Estimat Glomerular Filtration Rate 30 ML/MIN 39 ML/MIN Total Creatine Kinase 152 U/L Creatine Kinase MB 3.2 NG/ML Troponin I LESS THAN 0.02 NG/ML Urine Color YELLOW Urine Turbidity CLEAR Urine pH 5.5 Urine Specific [place] 1.020 Urine Protein NEG mg/dL Urine Glucose (UA) NEG mg/dL Urine Ketones NEG mg/dL Urine Occult Blood NEG Urine Nitrite NEG Urine Bilirubin NEG Urine Urobilinogen LESS THAN 2.0 MG/DL Urine Leukocyte Esterase SMALL Urine WBC 2 /hpf Urine Squamous Epithelial Cells 1 /hpf Microscopic Urinalysis Comment CULT NOT INDICATED Triglycerides Level 105 MG/DL Cholesterol Level 131 MG/DL LDL Cholesterol 56 MG/DL HDL Cholesterol 54.4 MG/DL Cholesterol/HDL Ratio 2.40 RATIO Imaging Last Impressions Brain MRI 04/01/17 0000 Signed Impressions: Service Date/Time: Saturday, April 01, 2017 07:52 - CONCLUSION: 1. No acute intracranial abnormality is identified. There no findings to indicate recent ischemia. 2. Chronic changes include severe generalized atrophy and periventricular white matter change characteristic of chronic microvascular ischemia. 3. Innumerable punctate areas of susceptibility artifact in the cerebrum and brainstem suggest hemosiderin deposition. This can be seen with amyloid angiopathy. Glynn Cline MD Head CT [id number] Signed Impressions: Service Date/Time: Friday, March 31, 2017 17:54 - CONCLUSION: Stable CT brain scan with extensive vascular calcifications and supratentorial stable deep white matter periventricular microvascular ischemic demyelinization. Corky Liu MD Chest X-Ray [id number] Signed Impressions: Service Date/Time: Friday, March 31, 2017 17:27 - CONCLUSION: 1. Hypoinflation. Possible small left-sided effusion versus pleural parenchymal scarring. 2. No confluent infiltrate. 3. Borderline prominent but well compensated heart. Can Reyes MD Carotid Artery Ultrasound 03/31/17 0000 Signed Impressions: Service Date/Time: [place], March 31, 2017 22:11 - CONCLUSION: 1. Normal hemodynamic profile both carotids. 2. Antegrade flow in both vertebral arteries with high resistive spectral profile left vertebral. Prior carotid MRA had demonstrated a right dominant vertebral system. Benito Diaz MD Objective Remarks GENERAL: AWAKE ALERT AND ORIENTED x 3 SKIN: Warm and dry. HEAD: Atraumatic. Normocephalic. EYES: Pupils equal and round. No scleral icterus. No injection or drainage. RIGHT LATERAL GAZE DEFECT ENT: No nasal bleeding or discharge. Mucous membranes pink and moist. TONGUE MIDLINE NECK: Trachea midline. No JVD. CARDIOVASCULAR: Regular rate and rhythm. S1, S2 NO S3 OR S4 RESPIRATORY: No accessory muscle use. Clear to auscultation. Breath sounds equal bilaterally. GASTROINTESTINAL: Abdomen soft, non-tender, nondistended. Hepatic and splenic margins not palpable. MUSCULOSKELETAL: Extremities without clubbing, cyanosis, or edema. No obvious deformities. NEUROLOGICAL: Awake and alert. No obvious cranial nerve deficits. Motor grossly within normal limits. Five out of 5 muscle strength in the arms and legs. Normal speech. PSYCHIATRIC: Appropriate mood and affect; insight and judgment normal. Procedures NONE Medications and IVs Current Medications Sodium Chloride (NS Flush) 2 ml UNSCH PRN IVF FLUSH AFTER USING IV ACCESS; Start 03/31/17 at 17:30; Stop 03/31/17 at 19:26; Status DC Aspirin (Aspirin) 325 mg ONCE ONCE PO Last administered on 03/31/17 18:54; Start 03/31/17 at 18:45; Stop 03/31/17 at 18:46; Status DC IV Flush (NS Flush) 2 ml BID IV FLUSH ; Start 03/31/17 at 21:00; Status UNV IV Flush (NS Flush) 2 ml UNSCH PRN IV FLUSH FLUSH AFTER USING IV ACCESS; Start 03/31/17 at 19:15; Status UNV Sodium Chloride 1,000 ml @ 70 mls/hr [id number] IV Last administered on 20:56; Start 03/31/17 at 19:12 Enalaprilat (Vasotec Inj) 1.25 mg Q4H PRN IV For SBP > 220 or DBP > 120; Start 03/31/17 at 19:15 Aspirin (Aspirin) 325 mg DAILY PO Last administered on 04/02/17 08:23; Start 04/01/17 at 09:00 Insulin Aspart (NovoLOG SUPPLEMENTAL SCALE) 1 ACHS SQ Last administered on 04/01 21:34; Start 03/31/17 at 21:00 Dextrose (D50w (Vial) Inj) 50 ml UNSCH PRN IV PUSH HYPOGLYCEMIA-SEE COMMENTS; Start 03/31/17 at 19:15 Glucagon (Glucagon Inj) 1 mg UNSCH PRN OTHER HYPOGLYCEMIA-SEE COMMENTS; Start 03/31/17 at 19:15 Sodium Chloride (NS Flush) 2 ml UNSCH PRN IV FLUSH FLUSH AFTER USING IV ACCESS ; Start 03/31/17 at 19:15 Sodium Chloride (NS Flush) 2 ml BID IV FLUSH Last administered on 04/01/17 21: 00; Start 03/31/17 at 21:00 Ondansetron HCl (Zofran Inj) 4 mg Q6H PRN IVP NAUSEA OR VOMITING; Start at 19:15 Acetaminophen (Tylenol) 650 mg Q6H PRN PO FEVER/PAIN SCALE 1 TO 2 Last administered on 04/01/17 16:32; Start 03/31/17 at 19:15 Acetaminophen/ Hydrocodone Bitart ([place] 5-325 Mg) 1 tab Q4H PRN PO PAIN SCALE 3 TO 5; Start 03/31/17 at 19:15 Morphine Sulfate (Morphine Inj) 2 mg Q3H PRN IV PUSH Pain 6-10; Start 03/31/17 at 19:15 Senna/Docusate Sodium (Allie-Colace) 1 tab BID PO Last administered on 08:22; Start 03/31/17 at 21:00 Magnesium Hydroxide (Milk Of Magnesia Liq) 30 ml Q12H PRN PO MILD - MODERATE CONSTIPATION; Start 03/31/17 at 19:15 Sennosides (Senokot) 17.2 mg Q12H PRN PO MODERATE - SEVERE CONSTIPATION; Start 03/31/17 at 19:15 Bisacodyl (Dulcolax Supp) 10 mg DAILY PRN RECTAL SEVERE CONSITIPATION; Start at 19:15 Lactulose (Lactulose Liq) 30 ml DAILY PRN PO SEVERE CONSITIPATION; Start at 19:15 Citalopram Hydrobromide (CeleXA) 20 mg DAILY PO Last administered on 04/02/17 08:22; Start 04/01/17 at 09:00 Clopidogrel Bisulfate (Plavix) 75 mg DAILY PO Last administered on 04/02/17 08 :22; Start 04/01/17 at 09:00 Pravastatin Sodium (Pravachol) 40 mg HS PO Last administered on 04/01/17 21:18 ; Start 03/31/17 at 21:00 Trazodone HCl (Desyrel) 100 mg HS PO Last administered on 04/01/17 21:18; Start 03/31/17 at 21:00 Meclizine HCl (Antivert) 25 mg Q8H PRN PO DIZZINESS; Start 03/31/17 at 21:45 Allopurinol (Zyloprim) 100 mg DAILY PO Last administered on 04/02/17 08:22; Start 04/02/17 at 09:00 Cyanocobalamin (Vitamin B12) 1,000 mcg DAILY PO Last administered on 04/02/17 08:22; Start 04/02/17 at 09:00 Non-Formulary Medication 25 mg DAILY PO ; Start 04/02/17 at 09:00; Status UNV Patient Own Medication PT OWN MED: TRIAMTER... DAILY PO ; Start 04/02/17 at 09: 00; Stop 04/02/17 at 10:40; Status DC Triamterene/HCTZ (Dyazide 37.5-25 Mg) 1 cap DAILY PO Last administered on 11:08; Start 04/02/17 at 10:45 Urinary Catheter: No Vascular Central Line Catheter: No A/P Problem List: (1) CVA (cerebral vascular accident) ICD Code: I63.9 - Cerebral infarction, unspecified (2) Gait instability ICD Code: R26.81 - Unsteadiness on feet (3) Renal insufficiency ICD Code: N28.9 - Disorder of kidney and ureter, unspecified (4) HTN (hypertension) ICD Code: I10 - Essential (primary) hypertension Assessment and Plan 1. CVA: h/o CVA w/ right-sided hemiparesis, now w/ dizziness, right lateral gaze preference and left-sided numbness/tingling. CT Head w/ extensive periventricular white matter disease which is stable, images reviewed by me. Check MRI Brain, Carotid US, resume home Plavix and Statin, start ASA. Hold antihypertensives. Consult Neurology for further recommendations. PT for eval/ tx. 2. Gait Instability: w/ associated dizziness, Meclizine prn, further eval for CVA as above, PT for eval/tx. 3. Renal Insufficiency: Acute on Chronic. Creatinine 1.63, previously 1.53 on 03/30/17. IVF for hydration, repeat labs in am. 4. HTN: BP 160-180's, allow for permissive HTN, hold antihypertensives for BP <220 systolic. Monitor BP 5. DVT Prophylaxis: SCD/Teds. 6. Social work for d/c planning as needed. VI PT AND PATIENT AND FAMILY AND RN NEUROLOGY NOTE REVIEWED HOPEFULLY HOME IN AM DC TO HOME TODAY WANTS TO GO HOME DID VERY WELL WITH PT NO NEED FOR [facility] Arden Winter DO Apr 02, 2017 12:24
[2017-04-02] MEDS ORDERED: PLAV75TA29 PO (12:28)
[2017-04-02] MEDS ORDERED: VITA10002 PO (12:28)
[2017-04-02] MEDS ORDERED: CELE20TA PO (12:28)
[2017-04-02] MEDS ORDERED: PRAV40TA2 PO (12:28)
[2017-04-02] MEDS ORDERED: TRAZ100T6 PO (12:28)
[2017-04-02] MEDS ORDERED: TRIA37.53 PO (12:28)
[2017-04-02] MEDS ORDERED: ALLO100T PO (12:28)
[2017-04-02] MEDS ORDERED: ASPI325T PO (12:28)
[2017-04-02] MEDS ORDERED: MECL1TAB42 PO (12:28)
--- NOTE | 2017-04-02 12:31 | HHI.DS ---
Discharge Summary Admission Date Mar 31, 2017 at 19:12 Discharge Date: Apr 02, 2017 Admitting Diagnosis CVA (1) CVA (cerebral vascular accident) ICD Code: I63.9 - Cerebral infarction, unspecified Diagnosis: Principal (2) Gait instability ICD Code: R26.81 - Unsteadiness on feet Diagnosis: Principal (3) Renal insufficiency ICD Code: N28.9 - Disorder of kidney and ureter, unspecified Diagnosis: Principal (4) HTN (hypertension) ICD Code: I10 - Essential (primary) hypertension Diagnosis: Secondary (5) Memory problem ICD Code: R41.3 - Other amnesia Diagnosis: Principal Status: Acute Procedures NONE Brief History - From Admission This is an 86-year-old female with a PMH of HTN, Anxiety and h/o CVA w/ Right- Sided Hemiplegia who was brought to the ER secondary to dizziness and left- sided weakness. 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 Seen in ER on 03/30/17 for similar complaints in addition to headache, however refused CT at that time and ultimately LEFT AMA. Now w/ worsening dizziness and gait difficulty. Denies fever, chills, nausea or vomiting. On arrival, BP 175/86, HR 86, O2 sat 99% on RA, Afebrile. CBC unremarkable. Creatinine 1.63, previously 1.53 on 03/30/17. Troponin negative. 1.0. CT Head stable, extensive vascular calcifications and supratentorial stable deep white matter periventricular microvascular ischemic demyelinization. CXR with hypoinflation, possible small left-sided effusion. On exam, pt noted to have right lateral gaze palsy, apparently new finding. CBC/BMP: 04/01/17 1153 04/01/17 1153 Significant Findings Laboratory Tests Test 03/31/17 17:25 03/31/17 21:30 04/01/17 11:53 Eosinophils (%) (Auto) 4.5 % (0.0-4.0) Blood Urea Nitrogen 29 MG/DL (7-18) 20 MG/DL (7-18) Creatinine 1.63 MG/DL (0.50-1.00) 1.30 MG/DL (0.50-1.00) Random Glucose 197 MG/DL (74-106) 133 MG/DL (74-106) Estimat Glomerular Filtration Rate 30 ML/MIN (>89) 39 ML/MIN (>89) Troponin I LESS THAN 0.02 NG/ML Urine Leukocyte Esterase SMALL (NEG) Platelet Count 142 TH/MM3 (150-450) Aspartate Amino Transf (AST/SGOT) 14 U/L (15-37) Imaging Last Impressions Brain MRI 04/01/17 0000 Signed Impressions: Service Date/Time: Saturday, April 01, 2017 07:52 - CONCLUSION: 1. No acute intracranial abnormality is identified. There no findings to indicate recent ischemia. 2. Chronic changes include severe generalized atrophy and periventricular white matter change characteristic of chronic microvascular ischemia. 3. Innumerable punctate areas of susceptibility artifact in the cerebrum and brainstem suggest hemosiderin deposition. This can be seen with amyloid angiopathy. Glynn Cline MD Head CT 03/31/178 Signed Impressions: Service Date/Time: Friday, March 31, 2017 17:54 - CONCLUSION: Stable CT brain scan with extensive vascular calcifications and supratentorial stable deep white matter periventricular microvascular ischemic demyelinization. Corky Liu MD Chest X-Ray 03/31/178 Signed Impressions: Service Date/Time: Friday, March 31, 2017 17:27 - CONCLUSION: 1. Hypoinflation. Possible small left-sided effusion versus pleural parenchymal scarring. 2. No confluent infiltrate. 3. Borderline prominent but well compensated heart. Can Reyes MD Carotid Artery Ultrasound 03/31/17 0000 Signed Impressions: Service Date/Time: Friday, March 31, 2017 22:11 - CONCLUSION: 1. Normal hemodynamic profile both carotids. 2. Antegrade flow in both vertebral arteries with high resistive spectral profile left vertebral. Prior carotid MRA had demonstrated a right dominant vertebral system. Benito Diaz MD PE at Discharge GENERAL: AWAKE ALERT AND ORIENTED x 3 SKIN: Warm and dry. HEAD: Atraumatic. Normocephalic. EYES: Pupils equal and round. No scleral icterus. No injection or drainage. RIGHT LATERAL GAZE DEFECT ENT: No nasal bleeding or discharge. Mucous membranes pink and moist. TONGUE MIDLINE NECK: Trachea midline. No JVD. CARDIOVASCULAR: Regular rate and rhythm. S1, S2 NO S3 OR S4 RESPIRATORY: No accessory muscle use. Clear to auscultation. Breath sounds equal bilaterally. GASTROINTESTINAL: Abdomen soft, non-tender, nondistended. Hepatic and splenic margins not palpable. MUSCULOSKELETAL: Extremities without clubbing, cyanosis, or edema. No obvious deformities. NEUROLOGICAL: Awake and alert. No obvious cranial nerve deficits. Motor grossly within normal limits. Five out of 5 muscle strength in the arms and legs. Normal speech. PSYCHIATRIC: Appropriate mood and affect; insight and judgment normal. Hospital Course This is an 86-year-old female with a PMH of HTN, Anxiety and h/o CVA w/ Right- Sided Hemiplegia who was brought to the ER secondary to dizziness and left- sided weakness. 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 Seen in ER on 03/30/17 for similar complaints in addition to headache, however refused CT at that time and ultimately LEFT AMA. Now w/ worsening dizziness and gait difficulty. Denies fever, chills, nausea or vomiting. On arrival, BP 175/86, HR 86, O2 sat 99% on RA, Afebrile. CBC unremarkable. Creatinine 1.63, previously 1.53 on 03/30/17. Troponin negative. 1.0. CT Head stable, extensive vascular calcifications and supratentorial stable deep white matter periventricular microvascular ischemic demyelinization. CXR with hypoinflation, possible small left-sided effusion. On exam, pt noted to have right lateral gaze palsy, apparently new finding. 04-01 SEEN BY NEUROLOGY AM LABS ECHO, CAROTIDS IF STABLE DC TO HOME TOMORROW DID WELL WITH PT 04-02 DOING WELL DC TO HOME NO NEED FOR HHC PT Pt Condition on Discharge: Good Discharge Disposition: Discharge Home Discharge Time: > 30 minutes Discharge Instructions DIET: Follow Instructions for: Heart Healthy Diet Speech Therapy-Diet Recommends: Regular Activities you can perform: Regular-No Restrictions Follow up Referrals: Neurology - 2 Weeks with Nuria Koch MD PCP Follow-up - 1 Week with Sonya Tabor Jr., MD New Medications: Aspirin (Aspirin) 325 Mg Tab 325 MG PO DAILY for Blood Clot Prevention, #90 TAB Meclizine HCl (Meclizine 25) 25 Mg Tab 25 MG PO Q8H PRN for DIZZINESS, #90 TAB Triamterene-Hydrochlorothiazide (Triamterene-Hydrochlorothiazide) 37.5-25 Mg Cap 1 CAP PO DAILY for Blood Pressure Management, #30 CAP Continued Medications: Allopurinol (Allopurinol) 100 Mg Tab 100 MG PO DAILY for Gout, #30 TAB 0 Refills (This prescription has been renewed) Citalopram (Celexa) 20 Mg Tab 20 MG PO DAILY for Control Depression, #30 TAB 0 Refills (This prescription has been renewed) Clopidogrel (Plavix) 75 Mg Tab 75 MG PO DAILY for Blood Clot Prevention, #30 TAB 0 Refills (This prescription has been renewed) Cyanocobalamin (Vitamin B-12) 1,000 Mcg Tab 1000 MCG PO DAILY for Nutritional Supplement, #1 BOTTLE 0 Refills (This prescription has been renewed) Pravastatin (Pravastatin) 40 Mg Tab 40 MG PO HS for Cholesterol Management, #30 TAB 0 Refills (This prescription has been renewed) Trazodone (Trazodone) 100 Mg Tablet 100 MG PO HS for Control Depression, #30 TAB 0 Refills (This prescription has been renewed) Discontinued Medications: Triamterene (Dyrenium) 50 Mg Cap 25 MG PO DAILY for Edema, #30 CAP 0 Refills Arden Winter DO Apr 02, 2017 12:31
--- NOTE | 2017-04-02 14:57 | ECHRPT ---
Indication: cva/tia CONCLUSIONS The left ventricular systolic function is normal with an estimated ejection fraction in the range of 55-60%. Wall thickness is normal. Normal left ventricular size. Mild mitral valve regurgitation. There is mild tricuspid valve regurgitation. The estimated pulmonary arterial pressure is 37.2 mmHg. BP: / HR: Rhythm: MEASUREMENTS (Male / Female) Normal Values Technical Quality:Fair 2D ECHO LV Diastolic Diameter PLAX 4.5 cm 4.2 - 5.9 / 3.9 - 5.3 cm LV Systolic Diameter PLAX 3.4 cm IVS Diastolic Thickness 1.0 cm 0.6 - 1.0 / 0.6 - 0.9 cm LVPW Diastolic Thickness 1.0 cm 0.6 - 1.0 / 0.6 - 0.9 cm LV Relative Wall Thickness 0.5 RV Internal Dim ED PLAX 2.5 cm M-MODE Aortic Root Diameter MM 3.2 cm LA Systolic Diameter MM 2.8 cm LA Ao Ratio MM 0.9 AV Cusp Separation MM 1.5 cm DOPPLER Mitral E Point Velocity 67.6 cm/s Mitral A Point Velocity 114.0 cm/s Mitral E to A Ratio 0.6 LV E' Lateral Velocity 5.7 cm/s Mitral E to LV E' Lateral Ratio 11.8 LV E' Septal Velocity 6.3 cm/s Mitral E to LV E' Septal Ratio 10.7 TR Peak Velocity 261.0 cm/s TR Peak Gradient 27.2 mmHg Right Atrial Pressure 10.0 mmHg Pulmonary Artery Systolic Pressu 37.2 mmHg Right Ventricular Systolic Press 37.2 mmHg FINDINGS LEFT VENTRICLE The left ventricular systolic function is normal with an estimated ejection fraction in the range of 55-60%. Wall thickness is normal. Normal left ventricular size. Doppler parameters are consistent with impaired left ventricular relaxtion (grade 1 diastolic dysfun ction). RIGHT VENTRICLE Normal right ventricular size and systolic function. LEFT ATRIUM The left atrial size is normal. RIGHT ATRIUM The right atrial size is normal. ATRIAL SEPTUM Normal atrial septal thickness without atrial level shunting by limited color doppler interrogation. AORTA The aortic root and proximal ascending aorta are normal in size on limited imaging. MITRAL VALVE Calcification of both mitral valve leaflets. Mitral annular calcification is present. AORTIC VALVE Trileaflet aortic valve. No aortic valve stenosis or regurgitation. Aortic valve sclerosis is present. TRICUSPID VALVE Structurally normal tricuspid valve. There is mild tricuspid valve regurgitation. The estimated pulmonary arterial pressure is 37.2 mmHg. PULMONARY VALVE No pulmonary valve regurgitation or stenosis. VESSELS The inferior vena cava is normal in size. PERICARDIUM No pericardial effusion. Bunny Velásquez MD (Electronically Signed) Final Date:02 April 2017 14:56
[2017-04-02 15:41] LABS: AUTOMATED NEUTROPHIL # 4.6 TH/MM3 (1.8-7.7); BASOPHIL # 0.1 TH/MM3 (0-0.2); BASOPHIL % 0.8 % (0.0-2.0); EOSINOPHIL # 0.3 TH/MM3 (0-0.4); HEMATOCRIT 42.9 % (35.0-46.0); HEMO FLAGS DIFF FINAL; LYMPH % 26.4 % (9.0-44.0); LYMPHOCYTE # 1.9 TH/MM3 (1.0-4.8); MEAN CELL VOLUME 87.8 FL (80.0-100.0); MEAN CORPUSCULAR HEMOGLOBIN 28.9 PG (27.0-34.0); MONO % 4.6 % (0.0-8.0); NEUT % 64.2 % (16.0-70.0); PLATELET COUNT 153 TH/MM3 (150-450); RED BLOOD COUNT 4.89 MIL/MM3 (4.00-5.30); RED CELL DISTRIBUTION WIDTH 14.5 % (11.6-17.2); WHITE BLOOD COUNT 7.2 TH/MM3 (4.0-11.0)
== END 2017-04-02 14:25 | disposition home or self-care (01) | DRG 69 ==
LOC: NEPE 16:50 → NEDA 19:12 → N05A 22:00
PROVIDERS: ADMIT Hospitalist; ATTEND Hospitalist
DX: G45.9 Transient cerebral ischemic attack, unspecified (principal); I69.351 Hemiplegia and hemiparesis following cerebral infarction affecting right dominant side; R26.81 Unsteadiness on feet; I12.9 Hypertensive chronic kidney disease with stage 1 through stage 4 chronic kidney disease, or unspecified chronic kidney disease; N18.9 Chronic kidney disease, unspecified; N28.9 Disorder of kidney and ureter, unspecified; R42 Dizziness and giddiness; M10.9 Gout, unspecified; F32.9 Major depressive disorder, single episode, unspecified; Z79.02 Long term (current) use of antithrombotics/antiplatelets; R51 Headache
CPT/HCPCS: 70450; 70551; 71010; 80048; 80053; 80061; 81001; 82550; 82552; 82948; 83036; 83735; 84484; 85025; 85610; 85730; 93005; 93306; 93880; 99285; J1815; J7030